=== PATIENT | male | born 1950 | race Caucasian/White ===

== ENCOUNTER 2017-12-06 10:18 | Inpatient (IN) | payer MEDICARE, OTHER ==
[~2017-12-06] VITALS: Ht 175.3 cm; Wt 68.6 kg
[~2017-12-06 10:18] MED LIST: ALBU18HF2 INH; ASPI-1 PO; ATOR20TA66 PO; BENZ-16 PO; BUDE10.2 INH; CLOP75TA35 PO; GABA-532 PO; IPRA4AER IH; LISI-600 PO; METO25TA6 PO; PETR368J TP; VIT1CAPS46 PO; [UNRECOGNIZED DRUG - CODE] PO
[2017-12-06] MEDS ORDERED: methylPREDNISolone sod succ 125mg/2ml vial IV ONE (10:30)
[2017-12-06] MEDS ORDERED: normal saline 1000ML IV soln IVB ONE (10:30)
[2017-12-06] MEDS ORDERED: albuterol 2.5 MG/3 ML nebule CONTNEB PRN (10:30)
[2017-12-06 11:03] LABS: BASOPHILS % (AUTO) 0.2 % (0-1); EOSINOPHILS # (AUTO) 0.1 X10'3 (0-0.9); EOSINOPHILS % (AUTO) 0.8 % (0-6); HEMATOCRIT 41.5 % (42.0-52.0); HEMOGLOBIN 14.1 g/dl (14.0-17.9); LYMPHOCYTES # (AUTO) 0.9 X10'3 (1.1-4.8); LYMPHOCYTES % (AUTO) 13.5 % (21-51); MEAN CORPUSCULAR HEMOGLOBIN 29.9 PG (27.0-31.0); MEAN CORPUSCULAR VOLUME 87.9 FL (78-98); MEAN PLATELET VOLUME 7.4 FL (7.4-10.4); MONOCYTES # (AUTO) 0.3 X10'3 (0-0.9); MONOCYTES % (AUTO) 4.8 % (2-12); NEUTROPHILS # (AUTO) 5.6 X10'3 (1.8-7.7); NEUTROPHILS % (AUTO) 80.7 % (42-75); PLATELET COUNT 363 X10'3 (140-440); RED BLOOD COUNT 4.71 X10'6 (4.70-6.10); RED CELL DISTRIBUTION WIDTH 13.1 % (11.5-14.5)
[2017-12-06] MEDS ORDERED: MAGN400O6 PO (11:13)
[2017-12-06] MEDS ORDERED: TAM75C PO (11:13)
[2017-12-06] MEDS ORDERED: FINA5TAB11 PO (11:13)
[2017-12-06] MEDS ORDERED: ONDA4TAB9 SL (11:13)
[2017-12-06] MEDS ORDERED: BENZ-38 PO (11:13)
[2017-12-06] MEDS ORDERED: ASPI-611 PO (11:13)
[2017-12-06] MEDS ORDERED: GABA-532 PO (11:13)
[2017-12-06] MEDS ORDERED: FLO0.4C PO (11:13)
[2017-12-06 11:14] LABS: PARTIAL THROMBOPLASTIN TIME 28 SECONDS (22-32)
[2017-12-06] MEDS ORDERED: NYST1000 PO (11:14)
[2017-12-06 11:18] LABS: ALANINE AMINOTRANSFERASE 32 U/L (12-78); ALBUMIN 3.9 G/DL (3.4-5.0); ALKALINE PHOSPHATASE 145 IU/L (46-116); ANION GAP 6 (8-16); ASPARTATE AMINO TRANSFERASE 37 U/L (10-37); BILIRUBIN,TOTAL 0.6 MG/DL (0.1-1.0); BLOOD UREA NITROGEN 15 MG/DL (7-18); BUN/CREATININE RATIO 15.3 (5.4-32.0); CALCIUM 9.1 MG/DL (8.5-10.1); CHLORIDE 94 MMOL/L (99-107); CREATININE 0.98 MG/DL (0.60-1.10); GLUCOSE 295 MG/DL (70-104); POTASSIUM 5.4 MMOL/L (3.5-5.1); SODIUM 129 MMOL/L (135-145); TOTAL CARBON DIOXIDE 28.6 MMOL/L (24-32); eGFR 76 ML/MIN
[2017-12-06 11:48] LABS: MAGNESIUM 1.9 MG/DL (1.5-2.4)
[2017-12-06] MEDS ORDERED: nitroGLYCERIN 0.4mg/hour patch TD ONE (11:50)
[2017-12-06] MEDS ORDERED: aspirin 300mg supp.rect RC ONE (11:50)
[2017-12-06] MEDS ORDERED: magnesium 2GM in 50ml NS 50 ML IV ONE (12:45)
[2017-12-06 13:08] LABS: POTASSIUM 5.4 MMOL/L (3.5-5.1)
[2017-12-06 13:11] LABS: ABG BASE EXCESS -2.3 mmol/L (-2.0-3.0); ABG HCO3 21.9 mmol/L (22.0-26.0); ABG OXYGEN SATURATION 95.5 % (95-98); ABG PCO2 (T) 36.9 mmHg (35.0-48.0); ABG PH (T) 7.394 (7.350-7.450); ABG PO2 (T) 81.7 mmHg (83-108); FCOHb 0.5 % (0.5-1.5); FMetHb 0.1 % (0.3-1.12); FO2Hb 94.9 % (94-100); PATIENT TEMPERATURE 37.7; RESPIRATORY RATE 19 b/min; TOTAL HEMOGLOBIN 14.1 G/dl (14.0-18.0)
[2017-12-06] MEDS ORDERED: magnesium hydroxide 30ml (MOM) UD suspension PO PRN (14:30)
[2017-12-06] MEDS ORDERED: ondansetron/PF 4mg/2ml inj IV PRN (14:30)
[2017-12-06] MEDS ORDERED: mag hydrox/Alum hydrox/simeth 30ml oral suspension PO PRN (14:30)
[2017-12-06] MEDS ORDERED: acetaminophen 325mg tablet PO PRN (14:30)
[2017-12-06] MEDS: levoFLOXACIN-Levaquin 500mg/D5 100 ML IV SCH (14:42)
[2017-12-06] MEDS: normal saline 1000ml 1,000 ML IV SCH (14:42)
[2017-12-06] MEDS: ipratropium/albuterol 3ml nebule NEB SCH ×3 (15:00→23:16)
[2017-12-06] MEDS ORDERED: PETROLATUM WHITE TP PRN (15:20)
[2017-12-06] MEDS ORDERED: albuterol 2.5 MG/3 ML nebule NEB ONE (15:20)
[2017-12-06] MEDS ORDERED: benzonatate 100mg capsule PO PRN ×2 (15:20)
[2017-12-06] MEDS ORDERED: albuterol 2.5 MG/3 ML nebule NEB PRN (15:35)
[2017-12-06] MEDS ORDERED: petrolatum, white 71gm jar TP PRN (15:45)
[2017-12-06] MEDS ORDERED: non-formulary drug (Ipratropium/Albuterol Sulfate (Combivent Respimat Inhal Spray) 1 PUFFS IH SCH (17:00)
[2017-12-06] MEDS: nystatin 500,000 unit/5ML UD oral suspension PO SCH ×2 (17:00→21:00)
[2017-12-06 17:20] VITALS: BP 152/94
[2017-12-06 19:00] VITALS: BP 95/78
[2017-12-06] MEDS: methylPREDNISolone sod succ 125mg/2ml vial IV SCH (20:00)
[2017-12-06] MEDS: gabapentin 300mg capsule PO SCH (20:00)
[2017-12-06] MEDS: magnesium hydroxide 30ml (MOM) UD suspension PO SCH (20:00)
[2017-12-06] MEDS: metoprolol tartrate 25mg tablet PO SCH (20:00)
[2017-12-06] MEDS: beta-carotene(A) w/C & E + minerals tab PO SCH (20:00)
[2017-12-06] MEDS: heparin, porcine 5000 units/ml vial SQ SCH (20:00)
[2017-12-06] MEDS ORDERED: bismuth subsalicylate 262mg chew tablet PO PRN (21:00)
[2017-12-06 23:00] VITALS: BP 109/74
[2017-12-07] VITALS (10 sets, daily range): BP systolic 115–146; BP diastolic 79–97
[2017-12-07] MEDS: methylPREDNISolone sod succ 125mg/2ml vial IV SCH ×4 (02:32→19:11)
[2017-12-07] MEDS: ipratropium/albuterol 3ml nebule NEB SCH ×6 (03:56→23:36)
[2017-12-07 05:40] LABS: BASOPHILS % (AUTO) 0 % (0-1); EOSINOPHILS % (AUTO) 0 % (0-6); HEMATOCRIT 37.2 % (42.0-52.0); HEMOGLOBIN 12.5 g/dl (14.0-17.9); LYMPHOCYTES # (AUTO) 0.6 X10'3 (1.1-4.8); LYMPHOCYTES % (AUTO) 12.4 % (21-51); MEAN CORPUSCULAR HEMOGLOBIN 29.7 PG (27.0-31.0); MEAN CORPUSCULAR HGB CONC 33.6 % (33.0-36.5); MEAN CORPUSCULAR VOLUME 88.5 FL (78-98); MEAN PLATELET VOLUME 7.9 FL (7.4-10.4); MONOCYTES # (AUTO) 0.1 X10'3 (0-0.9); MONOCYTES % (AUTO) 1.7 % (2-12); NEUTROPHILS # (AUTO) 3.9 X10'3 (1.8-7.7); NEUTROPHILS % (AUTO) 85.9 % (42-75); PLATELET COUNT 362 X10'3 (140-440); RED CELL DISTRIBUTION WIDTH 12.9 % (11.5-14.5); WHITE BLOOD COUNT 4.6 X10'3 (4.5-11.0)
[2017-12-07 06:02] LABS: ALBUMIN 3.4 G/DL (3.4-5.0); ANION GAP 10 (8-16); BLOOD UREA NITROGEN 20 MG/DL (7-18); BUN/CREATININE RATIO 21.7 (5.4-32.0); CALCIUM 9.2 MG/DL (8.5-10.1); CHLORIDE 96 MMOL/L (99-107); CREATININE 0.92 MG/DL (0.60-1.10); GLUCOSE 320 MG/DL (70-104); POTASSIUM 4.7 MMOL/L (3.5-5.1); SODIUM 132 MMOL/L (135-145); TOTAL CARBON DIOXIDE 25.8 MMOL/L (24-32); eGFR 82 ML/MIN
[2017-12-07] MEDS: oseltamivir phos 75mg capsule PO SCH ×3 (06:43→20:00)
[2017-12-07] MEDS: finasteride 5mg tablet PO SCH (08:00)
[2017-12-07] MEDS: nystatin 500,000 unit/5ML UD oral suspension PO SCH ×4 (08:00→20:10)
[2017-12-07] MEDS: atorvastatin 20mg tablet PO SCH (08:00)
[2017-12-07] MEDS: aspirin 81mg tablet.DR PO SCH (08:00)
[2017-12-07] MEDS: clopidogrel 75mg tablet PO SCH (08:00)
[2017-12-07] MEDS: tamsulosin 0.4mg capsule PO SCH (08:00)
[2017-12-07] MEDS: beta-carotene(A) w/C & E + minerals tab PO SCH ×2 (08:00→20:00)
[2017-12-07] MEDS: fluticasone/vilanterol 200mcg/25mcg inhaler IH SCH (08:00)
[2017-12-07] MEDS: magnesium hydroxide 30ml (MOM) UD suspension PO SCH ×2 (08:00→20:00)
[2017-12-07] MEDS: lisinopril 20mg tablet PO SCH (08:00)
[2017-12-07] MEDS: metoprolol tartrate 25mg tablet PO SCH ×2 (08:00→20:00)
[2017-12-07] MEDS: gabapentin 300mg capsule PO SCH ×2 (08:00→20:00)
[2017-12-07] MEDS: levoFLOXACIN-Levaquin 500mg/D5 100 ML IV SCH (08:12)
[2017-12-07] MEDS: pantoprazole 40 MG vial IV SCH (08:12)
[2017-12-07] MEDS: heparin, porcine 5000 units/ml vial SQ SCH ×2 (08:13→19:11)
[2017-12-07] MEDS ORDERED: dextrose ORAL solution 15 GM/59 ML bottle PO PRN ×2 (14:40)
[2017-12-07] MEDS ORDERED: insulin regular, human vial - multi-dose SQ SCH (14:40)
[2017-12-07] MEDS ORDERED: MESSAGE TO PHARMACY PO ONE (14:40)
[2017-12-07] MEDS ORDERED: dextrose 50%-water 50ml dispensing syringe IV PRN ×2 (14:40)
[2017-12-07] MEDS ORDERED: glucagon, human recombinant 1mg kit SUBCUT PRN (14:40)
[2017-12-07] MEDS ORDERED: LORazepam 2 mg/ml vial IV ONE ×2 (14:50→23:30)
[2017-12-07] MEDS ORDERED: LORazepam 2 mg/ml vial ONE (14:51)
[2017-12-07] MEDS ORDERED: diltiazem 5mg/ml 5ml inj. IV ONE (15:10)
[2017-12-07] MEDS ORDERED: diltiazem-D5W 125mg/125ml 125 ML IV SCH (15:10)
[2017-12-07] MEDS: insulin Lispro (HumaLOG) vial - multi-dose SQ SCH ×2 (17:37→21:37)
[2017-12-07] MEDS: Insulin Detemir pen SQ SCH (21:36)
[2017-12-08] MEDS: methylPREDNISolone sod succ 125mg/2ml vial IV SCH ×4 (02:25→18:52)
[2017-12-08 03:00] VITALS: BP 139/86
[2017-12-08] MEDS: ipratropium/albuterol 3ml nebule NEB SCH ×6 (03:10→23:44)
[2017-12-08 06:28] LABS: BASOPHILS % (AUTO) 0.1 % (0-1); EOSINOPHILS # (AUTO) 0.1 X10'3 (0-0.9); EOSINOPHILS % (AUTO) 0.9 % (0-6); HEMATOCRIT 35.8 % (42.0-52.0); HEMOGLOBIN 12.1 g/dl (14.0-17.9); LYMPHOCYTES # (AUTO) 0.5 X10'3 (1.1-4.8); LYMPHOCYTES % (AUTO) 5.7 % (21-51); MEAN CORPUSCULAR HEMOGLOBIN 29.9 PG (27.0-31.0); MEAN CORPUSCULAR HGB CONC 33.7 % (33.0-36.5); MEAN CORPUSCULAR VOLUME 88.9 FL (78-98); MEAN PLATELET VOLUME 8.1 FL (7.4-10.4); MONOCYTES # (AUTO) 0.2 X10'3 (0-0.9); MONOCYTES % (AUTO) 2.1 % (2-12); NEUTROPHILS # (AUTO) 8.6 X10'3 (1.8-7.7); NEUTROPHILS % (AUTO) 91.2 % (42-75); PLATELET COUNT 344 X10'3 (140-440); RED BLOOD COUNT 4.03 X10'6 (4.70-6.10); RED CELL DISTRIBUTION WIDTH 13.3 % (11.5-14.5); WHITE BLOOD COUNT 9.4 X10'3 (4.5-11.0)
[2017-12-08 06:57] LABS: ALBUMIN 3.2 G/DL (3.4-5.0); ANION GAP 9 (8-16); BLOOD UREA NITROGEN 33 MG/DL (7-18); BUN/CREATININE RATIO 35.9 (5.4-32.0); CALCIUM 8.9 MG/DL (8.5-10.1); CHLORIDE 102 MMOL/L (99-107); CREATININE 0.92 MG/DL (0.60-1.10); GLUCOSE 269 MG/DL (70-104); POTASSIUM 4.1 MMOL/L (3.5-5.1); SODIUM 137 MMOL/L (135-145); TOTAL CARBON DIOXIDE 25.6 MMOL/L (24-32); eGFR 82 ML/MIN
[2017-12-08 07:00] VITALS: BP 123/82
[2017-12-08] MEDS: fluticasone/vilanterol 200mcg/25mcg inhaler IH SCH (07:17)
[2017-12-08] MEDS: gabapentin 300mg capsule PO SCH ×2 (08:00→18:52)
[2017-12-08] MEDS: pantoprazole 40 MG vial IV SCH (08:55)
[2017-12-08] MEDS: aspirin 81mg tablet.DR PO SCH (08:55)
[2017-12-08] MEDS: nystatin 500,000 unit/5ML UD oral suspension PO SCH ×4 (08:55→18:54)
[2017-12-08] MEDS: magnesium hydroxide 30ml (MOM) UD suspension PO SCH ×2 (08:55→18:40)
[2017-12-08] MEDS: atorvastatin 20mg tablet PO SCH (08:55)
[2017-12-08] MEDS: beta-carotene(A) w/C & E + minerals tab PO SCH ×2 (08:56→18:53)
[2017-12-08] MEDS: clopidogrel 75mg tablet PO SCH (08:56)
[2017-12-08] MEDS: oseltamivir phos 75mg capsule PO SCH ×2 (08:58→18:52)
[2017-12-08] MEDS: lisinopril 20mg tablet PO SCH (08:58)
[2017-12-08] MEDS: tamsulosin 0.4mg capsule PO SCH (08:58)
[2017-12-08] MEDS: heparin, porcine 5000 units/ml vial SQ SCH ×2 (08:58→18:54)
[2017-12-08] MEDS: levoFLOXACIN-Levaquin 500mg/D5 100 ML IV SCH (08:59)
[2017-12-08] MEDS: metoprolol tartrate 25mg tablet PO SCH ×2 (09:02→18:40)
[2017-12-08] MEDS: finasteride 5mg tablet PO SCH (09:18)
[2017-12-08] MEDS: insulin Lispro (HumaLOG) vial - multi-dose SQ SCH ×3 (09:29→18:39)
[2017-12-08 11:00] VITALS: BP 128/77
[2017-12-08] MEDS ORDERED: LORazepam 0.5 MG tablet PO PRN (11:10)
[2017-12-08] MEDS: normal saline 1000ml 1,000 ML IV SCH (14:32)
[2017-12-08 15:00] VITALS: BP 122/84
[2017-12-08] MEDS: NUT.TX.GLUC.INTOLER,LAC-FR,REG (BOOST GLUCOSE CONTROL) 237 ML PO SCH (17:44)
[2017-12-08 19:00] VITALS: BP 95/62
[2017-12-08] MEDS: Insulin Detemir pen SQ SCH (21:30)
[2017-12-08 23:00] VITALS: BP 113/67
[2017-12-09] VITALS (11 sets, daily range): BP systolic 99–211; BP diastolic 59–142
[2017-12-09] MEDS: methylPREDNISolone sod succ 125mg/2ml vial IV SCH ×4 (02:14→20:18)
[2017-12-09] MEDS: ipratropium/albuterol 3ml nebule NEB SCH ×6 (04:04→23:15)
[2017-12-09 06:52] LABS: BASOPHILS % (AUTO) 0.3 % (0-1); EOSINOPHILS # (AUTO) 0.1 X10'3 (0-0.9); EOSINOPHILS % (AUTO) 1.4 % (0-6); HEMATOCRIT 34.4 % (42.0-52.0); HEMOGLOBIN 11.6 g/dl (14.0-17.9); LYMPHOCYTES # (AUTO) 0.5 X10'3 (1.1-4.8); LYMPHOCYTES % (AUTO) 7.5 % (21-51); MEAN CORPUSCULAR HEMOGLOBIN 29.9 PG (27.0-31.0); MEAN CORPUSCULAR HGB CONC 33.8 % (33.0-36.5); MEAN CORPUSCULAR VOLUME 88.4 FL (78-98); MONOCYTES # (AUTO) 0.2 X10'3 (0-0.9); MONOCYTES % (AUTO) 3.6 % (2-12); NEUTROPHILS # (AUTO) 5.4 X10'3 (1.8-7.7); NEUTROPHILS % (AUTO) 87.2 % (42-75); PLATELET COUNT 346 X10'3 (140-440); RED BLOOD COUNT 3.89 X10'6 (4.70-6.10); RED CELL DISTRIBUTION WIDTH 13.4 % (11.5-14.5); WHITE BLOOD COUNT 6.2 X10'3 (4.5-11.0)
[2017-12-09 07:05] LABS: ANION GAP 7 (8-16); BLOOD UREA NITROGEN 29 MG/DL (7-18); BUN/CREATININE RATIO 37.7 (5.4-32.0); CALCIUM 8.5 MG/DL (8.5-10.1); CHLORIDE 103 MMOL/L (99-107); CREATININE 0.77 MG/DL (0.60-1.10); GLUCOSE 215 MG/DL (70-104); POTASSIUM 4.2 MMOL/L (3.5-5.1); SODIUM 137 MMOL/L (135-145); TOTAL CARBON DIOXIDE 26.8 MMOL/L (24-32); eGFR > 90 ML/MIN
[2017-12-09] MEDS: fluticasone/vilanterol 200mcg/25mcg inhaler IH SCH (07:42)
[2017-12-09] MEDS: gabapentin 300mg capsule PO SCH ×2 (08:26→20:17)
[2017-12-09] MEDS: insulin Lispro (HumaLOG) vial - multi-dose SQ SCH ×4 (08:26→21:43)
[2017-12-09] MEDS: nystatin 500,000 unit/5ML UD oral suspension PO SCH ×4 (08:26→20:18)
[2017-12-09] MEDS: magnesium hydroxide 30ml (MOM) UD suspension PO SCH ×2 (08:26→20:18)
[2017-12-09] MEDS: pantoprazole 40mg Tablet.DR PO SCH (08:27)
[2017-12-09] MEDS: levoFLOXACIN-Levaquin 500mg/D5 100 ML IV SCH (08:27)
[2017-12-09] MEDS: oseltamivir phos 75mg capsule PO SCH ×2 (08:27→20:17)
[2017-12-09] MEDS: beta-carotene(A) w/C & E + minerals tab PO SCH ×2 (08:27→20:17)
[2017-12-09] MEDS: atorvastatin 20mg tablet PO SCH (08:27)
[2017-12-09] MEDS: clopidogrel 75mg tablet PO SCH (08:27)
[2017-12-09] MEDS: metoprolol tartrate 25mg tablet PO SCH ×2 (08:27→20:00)
[2017-12-09] MEDS: aspirin 81mg tablet.DR PO SCH (08:27)
[2017-12-09] MEDS: lisinopril 20mg tablet PO SCH (08:39)
[2017-12-09] MEDS: heparin, porcine 5000 units/ml vial SQ SCH ×2 (08:47→20:18)
[2017-12-09] MEDS: tamsulosin 0.4mg capsule PO SCH (08:48)
[2017-12-09] MEDS: finasteride 5mg tablet PO SCH (08:52)
[2017-12-09] MEDS: NUT.TX.GLUC.INTOLER,LAC-FR,REG (BOOST GLUCOSE CONTROL) 237 ML PO SCH ×6 (13:00→21:46)
[2017-12-09] MEDS ORDERED: LORazepam 2 mg/ml vial IV ONE (16:15)
[2017-12-09] MEDS ORDERED: metoprolol tartrate 1mg/ml inj IV ONE (16:15)
[2017-12-09 16:30] LABS: ABG BASE EXCESS -2.4 mmol/L (-2.0-3.0); ABG HCO3 23.5 mmol/L (22.0-26.0); ABG OXYGEN SATURATION 98.1 % (95-98); ABG PCO2 (T) 44.5 mmHg (35.0-48.0); ABG PO2 (T) 127.7 mmHg (83-108); ALLEN'S TEST Positive; FCOHb 0.3 % (0.5-1.5); FLOW 6 L/min; FMetHb 0.1 % (0.3-1.12); FO2Hb 97.7 % (94-100); TOTAL HEMOGLOBIN 13.8 G/dl (14.0-18.0)
[2017-12-09 16:44] LABS: BASOPHILS % (AUTO) 0.5 % (0-1); EOSINOPHILS # (AUTO) 0.2 X10'3 (0-0.9); HEMATOCRIT 39.6 % (42.0-52.0); HEMOGLOBIN 13.3 g/dl (14.0-17.9); LYMPHOCYTES # (AUTO) 0.3 X10'3 (1.1-4.8); LYMPHOCYTES % (AUTO) 3.3 % (21-51); MEAN CORPUSCULAR HEMOGLOBIN 30.1 PG (27.0-31.0); MEAN CORPUSCULAR HGB CONC 33.6 % (33.0-36.5); MEAN CORPUSCULAR VOLUME 89.6 FL (78-98); MEAN PLATELET VOLUME 7.7 FL (7.4-10.4); MONOCYTES # (AUTO) 0.2 X10'3 (0-0.9); MONOCYTES % (AUTO) 2.3 % (2-12); NEUTROPHILS % (AUTO) 91.9 % (42-75); PLATELET COUNT 361 X10'3 (140-440); RED BLOOD COUNT 4.41 X10'6 (4.70-6.10); RED CELL DISTRIBUTION WIDTH 13.1 % (11.5-14.5); WHITE BLOOD COUNT 8.8 X10'3 (4.5-11.0)
[2017-12-09 17:45] LABS: ALANINE AMINOTRANSFERASE 31 U/L (12-78); ALBUMIN 3.4 G/DL (3.4-5.0); ALKALINE PHOSPHATASE 98 IU/L (46-116); ANION GAP 9 (8-16); ASPARTATE AMINO TRANSFERASE 14 U/L (10-37); BILIRUBIN,TOTAL 0.6 MG/DL (0.1-1.0); BLOOD UREA NITROGEN 30 MG/DL (7-18); BUN/CREATININE RATIO 27.8 (5.4-32.0); CALCIUM 8.6 MG/DL (8.5-10.1); CHLORIDE 101 MMOL/L (99-107); CREATININE 1.08 MG/DL (0.60-1.10); GLUCOSE 191 MG/DL (70-104); POTASSIUM 4.3 MMOL/L (3.5-5.1); SODIUM 137 MMOL/L (135-145); TOTAL CARBON DIOXIDE 27.1 MMOL/L (24-32); TOTAL PROTEIN 6.8 G/DL (6.4-8.2); TROPONIN I < 0.04 NG/ML (0.0-0.05); eGFR 68 ML/MIN
[2017-12-09] MEDS: Insulin Detemir pen SQ SCH (21:44)
[2017-12-10] MEDS: methylPREDNISolone sod succ 125mg/2ml vial IV SCH ×4 (01:50→20:49)
[2017-12-10 02:00] VITALS: BP 143/74
[2017-12-10] MEDS: ipratropium/albuterol 3ml nebule NEB SCH ×6 (02:47→23:14)
[2017-12-10 06:00] VITALS: BP 173/79
[2017-12-10 06:03] LABS: BASOPHILS % (AUTO) 0 % (0-1); EOSINOPHILS % (AUTO) 0.9 % (0-6); HEMATOCRIT 37.6 % (42.0-52.0); HEMOGLOBIN 12.5 g/dl (14.0-17.9); LYMPHOCYTES # (AUTO) 0.4 X10'3 (1.1-4.8); LYMPHOCYTES % (AUTO) 7.3 % (21-51); MEAN CORPUSCULAR HEMOGLOBIN 29.6 PG (27.0-31.0); MEAN CORPUSCULAR HGB CONC 33.2 % (33.0-36.5); MEAN CORPUSCULAR VOLUME 89.2 FL (78-98); MEAN PLATELET VOLUME 7.8 FL (7.4-10.4); MONOCYTES # (AUTO) 0.2 X10'3 (0-0.9); MONOCYTES % (AUTO) 3.1 % (2-12); NEUTROPHILS # (AUTO) 4.8 X10'3 (1.8-7.7); NEUTROPHILS % (AUTO) 88.7 % (42-75); PLATELET COUNT 351 X10'3 (140-440); RED BLOOD COUNT 4.22 X10'6 (4.70-6.10); RED CELL DISTRIBUTION WIDTH 13.5 % (11.5-14.5); WHITE BLOOD COUNT 5.4 X10'3 (4.5-11.0)
[2017-12-10 06:15] LABS: ALBUMIN 3.1 G/DL (3.4-5.0); ANION GAP 5 (8-16); BLOOD UREA NITROGEN 27 MG/DL (7-18); CALCIUM 8.9 MG/DL (8.5-10.1); CHLORIDE 102 MMOL/L (99-107); CREATININE 0.73 MG/DL (0.60-1.10); GLUCOSE 229 MG/DL (70-104); POTASSIUM 3.9 MMOL/L (3.5-5.1); SODIUM 137 MMOL/L (135-145); TOTAL CARBON DIOXIDE 30.5 MMOL/L (24-32); eGFR > 90 ML/MIN
[2017-12-10] MEDS: magnesium hydroxide 30ml (MOM) UD suspension PO SCH ×2 (08:00→20:00)
[2017-12-10] MEDS: NUT.TX.GLUC.INTOLER,LAC-FR,REG (BOOST GLUCOSE CONTROL) 237 ML PO SCH ×3 (08:00→18:00)
[2017-12-10] MEDS: fluticasone/vilanterol 200mcg/25mcg inhaler IH SCH (08:05)
[2017-12-10] MEDS: insulin Lispro (HumaLOG) vial - multi-dose SQ SCH ×2 (10:16→13:25)
[2017-12-10] MEDS: tamsulosin 0.4mg capsule PO SCH (10:45)
[2017-12-10] MEDS: nystatin 500,000 unit/5ML UD oral suspension PO SCH ×4 (10:45→20:49)
[2017-12-10] MEDS: atorvastatin 20mg tablet PO SCH (10:46)
[2017-12-10] MEDS: clopidogrel 75mg tablet PO SCH (10:46)
[2017-12-10] MEDS: finasteride 5mg tablet PO SCH (10:46)
[2017-12-10] MEDS: aspirin 81mg tablet.DR PO SCH (10:46)
[2017-12-10] MEDS: metoprolol tartrate 25mg tablet PO SCH ×2 (10:46→20:48)
[2017-12-10] MEDS: beta-carotene(A) w/C & E + minerals tab PO SCH ×2 (10:46→20:48)
[2017-12-10] MEDS: lisinopril 20mg tablet PO SCH (10:47)
[2017-12-10] MEDS: oseltamivir phos 75mg capsule PO SCH ×2 (10:47→20:49)
[2017-12-10] MEDS: gabapentin 300mg capsule PO SCH ×2 (10:47→20:48)
[2017-12-10] MEDS: levoFLOXACIN-Levaquin 500mg/D5 100 ML IV SCH (10:54)
[2017-12-10] MEDS: heparin, porcine 5000 units/ml vial SQ SCH ×2 (10:55→20:50)
[2017-12-10] MEDS: pantoprazole 40mg Tablet.DR PO SCH (10:55)
[2017-12-10 11:00] VITALS: BP 156/82
[2017-12-10] MEDS: HYDROcodone/acetaminophen 5mg/325mg tablet PO PRN ×2 (17:19→17:21)
[2017-12-10 19:00] VITALS: BP 124/80
[2017-12-10] MEDS: Insulin Detemir pen SQ SCH (21:18)
[2017-12-10 23:00] VITALS: BP 129/74
[2017-12-11] MEDS: methylPREDNISolone sod succ 125mg/2ml vial IV SCH ×2 (01:40→09:28)
[2017-12-11 03:00] VITALS: BP 130/66
[2017-12-11] MEDS: ipratropium/albuterol 3ml nebule NEB SCH ×3 (04:36→11:00)
[2017-12-11 06:04] LABS: BASOPHILS % (AUTO) 0 % (0-1); EOSINOPHILS # (AUTO) 0.1 X10'3 (0-0.9); EOSINOPHILS % (AUTO) 1.1 % (0-6); HEMATOCRIT 36.2 % (42.0-52.0); HEMOGLOBIN 12.1 g/dl (14.0-17.9); LYMPHOCYTES # (AUTO) 0.3 X10'3 (1.1-4.8); LYMPHOCYTES % (AUTO) 4.8 % (21-51); MEAN CORPUSCULAR HEMOGLOBIN 29.7 PG (27.0-31.0); MEAN CORPUSCULAR HGB CONC 33.4 % (33.0-36.5); MEAN CORPUSCULAR VOLUME 88.9 FL (78-98); MEAN PLATELET VOLUME 8.1 FL (7.4-10.4); MONOCYTES # (AUTO) 0.2 X10'3 (0-0.9); MONOCYTES % (AUTO) 2.8 % (2-12); NEUTROPHILS # (AUTO) 6.5 X10'3 (1.8-7.7); NEUTROPHILS % (AUTO) 91.3 % (42-75); PLATELET COUNT 337 X10'3 (140-440); RED BLOOD COUNT 4.07 X10'6 (4.70-6.10); RED CELL DISTRIBUTION WIDTH 13.2 % (11.5-14.5); WHITE BLOOD COUNT 7.1 X10'3 (4.5-11.0)
[2017-12-11 06:18] LABS: ALBUMIN 2.9 G/DL (3.4-5.0); ANION GAP 5 (8-16); BLOOD UREA NITROGEN 29 MG/DL (7-18); BUN/CREATININE RATIO 35.8 (5.4-32.0); CALCIUM 8.7 MG/DL (8.5-10.1); CHLORIDE 101 MMOL/L (99-107); CREATININE 0.81 MG/DL (0.60-1.10); GLUCOSE 229 MG/DL (70-104); POTASSIUM 4.2 MMOL/L (3.5-5.1); SODIUM 134 MMOL/L (135-145); TOTAL CARBON DIOXIDE 27.7 MMOL/L (24-32); eGFR > 90 ML/MIN
[2017-12-11] MEDS: magnesium hydroxide 30ml (MOM) UD suspension PO SCH (08:00)
[2017-12-11] MEDS: fluticasone/vilanterol 200mcg/25mcg inhaler IH SCH (08:03)
[2017-12-11] MEDS: finasteride 5mg tablet PO SCH (09:30)
[2017-12-11] MEDS: beta-carotene(A) w/C & E + minerals tab PO SCH (09:30)
[2017-12-11] MEDS: atorvastatin 20mg tablet PO SCH (09:30)
[2017-12-11] MEDS: aspirin 81mg tablet.DR PO SCH (09:30)
[2017-12-11] MEDS: oseltamivir phos 75mg capsule PO SCH (09:30)
[2017-12-11] MEDS: metoprolol tartrate 25mg tablet PO SCH (09:31)
[2017-12-11] MEDS: gabapentin 300mg capsule PO SCH (09:31)
[2017-12-11] MEDS: clopidogrel 75mg tablet PO SCH (09:31)
[2017-12-11] MEDS: tamsulosin 0.4mg capsule PO SCH (09:31)
[2017-12-11] MEDS: nystatin 500,000 unit/5ML UD oral suspension PO SCH (09:31)
[2017-12-11] MEDS: lisinopril 20mg tablet PO SCH (09:31)
[2017-12-11] MEDS: pantoprazole 40mg Tablet.DR PO SCH (09:31)
[2017-12-11] MEDS: heparin, porcine 5000 units/ml vial SQ SCH (09:32)
[2017-12-11] MEDS: insulin Lispro (HumaLOG) vial - multi-dose SQ SCH (09:38)
[2017-12-11] MEDS ORDERED: levoFLOXACIN 500mg tablet PO SCH (11:00)
[2017-12-11] MEDS: HYDROcodone/acetaminophen 5mg/325mg tablet PO PRN (11:38)
[2017-12-11] MEDS: NUT.TX.GLUC.INTOLER,LAC-FR,REG (BOOST GLUCOSE CONTROL) 237 ML PO SCH (11:43)
== END 2017-12-11 12:30 | DRG 189 ==
LOC: ER 10:19 → ED HOLD 14:32 → EDBEDREQ 15:06 → PCU 3S 16:28
PROVIDERS: ADMIT Family Medicine; ATTEND Family Medicine
PROC: 5A09357 Assistance with Respiratory Ventilation, Less than 24 Consecutive Hours, Continuous Positive Airway Pressure (ICD-10-PCS; principal; 2017-12-06)
PROC: 5A09357 Assistance with Respiratory Ventilation, Less than 24 Consecutive Hours, Continuous Positive Airway Pressure (ICD-10-PCS; 2017-12-07)
PROC: 5A09357 Assistance with Respiratory Ventilation, Less than 24 Consecutive Hours, Continuous Positive Airway Pressure (ICD-10-PCS; 2017-12-08)
DX: J96.21 Acute and chronic respiratory failure with hypoxia (principal); I24.8 Other forms of acute ischemic heart disease; E87.1 Hypo-osmolality and hyponatremia; J44.1 Chronic obstructive pulmonary disease with (acute) exacerbation; E87.5 Hyperkalemia; E78.5 Hyperlipidemia, unspecified; I10 Essential (primary) hypertension; I25.10 Atherosclerotic heart disease of native coronary artery without angina pectoris; Z60.2 Problems related to living alone; Z66 Do not resuscitate; Z79.899 Other long term (current) drug therapy; Z79.82 Long term (current) use of aspirin; Z79.02 Long term (current) use of antithrombotics/antiplatelets; Z83.3 Family history of diabetes mellitus; Z82.5 Family history of asthma and other chronic lower respiratory diseases; Z83.518 Family history of other specified eye disorder
CPT/HCPCS: 36415; 36600; 71045; 80048; 80053; 82803; 82948; 83036; 83605; 83735; 83880; 84132; 84484; 85018; 85025; 85610; 85730; 87040; 87070; 92616; 93005; 93308; 94640; 94660; 94760; 96361; 96365; 96375; 97116; 97161; 97530; 99291; A4315; A6212; A6213; C9113; J1644; J1815; J1956; J2060; J2930; J3475; J3490; J7030

== ENCOUNTER 2021-04-30 14:11 | Inpatient (IN) | payer OTHER, MEDICARE ==
[~2021-04-30] VITALS: Ht 175.3 cm; Wt 50.0 kg
[~2021-04-30 14:11] MED LIST changes: -ASPI-1 PO; +ASPI-611 PO; +BENZ-38 PO; +CLOP75TA34 PO; -CLOP75TA35 PO; +FINA5TAB11 PO; +FLO0.4C PO; -LISI-600 PO; +LISI20TA28 PO; +LOP25T PO; +MAGN400O6 PO; -METO25TA6 PO; +NYST1000 PO; +ONDA4TAB9 SL; +TAM75C PO
[2021-04-30] MEDS ORDERED: normal saline 1000ml 1,000 ML IV ONE (15:05)
[2021-04-30] MEDS ORDERED: normal saline 1000ML IV soln IVB ONE (15:05)
[2021-04-30] MEDS: diatr meglu/diatrizoate 30ml oral sol.-(3 dose) bottle PO SCH ×3 (15:39→16:35)
[2021-04-30] MEDS ORDERED: ondansetron/PF 4mg/2ml inj IV ONE (15:45)
[2021-04-30] MEDS ORDERED: morphine 4 MG/ML inj SYRINge IV ONE (15:45)
[2021-04-30 15:58] LABS: BASOPHILS # (AUTO) 0.1 X10'3 (0-0.2); BASOPHILS % (AUTO) 0.8 % (0-1); EOSINOPHILS # (AUTO) 0.1 X10'3 (0-0.9); EOSINOPHILS % (AUTO) 1.1 % (0-6); HEMATOCRIT 43.5 % (42.0-52.0); HEMOGLOBIN 14.7 g/dl (14.0-17.9); LYMPHOCYTES # (AUTO) 1.5 X10'3 (1.1-4.8); LYMPHOCYTES % (AUTO) 16.6 % (21-51); MEAN CORPUSCULAR HEMOGLOBIN 31.3 PG (27.0-31.0); MEAN CORPUSCULAR HGB CONC 33.9 g/dL (33.0-36.5); MEAN CORPUSCULAR VOLUME 92.3 FL (78-98); MEAN PLATELET VOLUME 7.7 FL (7.4-10.4); MONOCYTES # (AUTO) 0.5 X10'3 (0-0.9); MONOCYTES % (AUTO) 5.1 % (2-12); NEUTROPHILS % (AUTO) 76.4 % (42-75); PLATELET COUNT 368 X10'3 (140-440); RED BLOOD COUNT 4.71 X10'6 (4.70-6.10); RED CELL DISTRIBUTION WIDTH 13.5 % (11.5-14.5); WHITE BLOOD COUNT 9.2 X10'3 (4.5-11.0)
[2021-04-30 16:23] LABS: ALANINE AMINOTRANSFERASE 32 U/L (12-78); ALBUMIN 3.4 G/DL (3.4-5.0); ALBUMIN/GLOBULIN RATIO 0.8 (1.1-1.5); ALKALINE PHOSPHATASE 128 IU/L (46-116); ANION GAP 11 (8-16); ASPARTATE AMINO TRANSFERASE 19 U/L (10-37); BILIRUBIN,TOTAL 0.5 MG/DL (0.1-1.0); BLOOD UREA NITROGEN 9 MG/DL (7-18); BUN/CREATININE RATIO 9.1 (5.4-32.0); CALCIUM 9.6 MG/DL (8.5-10.1); CHLORIDE 97 MMOL/L (99-107); CREATININE 0.99 MG/DL (0.60-1.10); GLUCOSE 191 MG/DL (70-104); POTASSIUM 4.2 MMOL/L (3.5-5.1); SODIUM 137 MMOL/L (135-145); TOTAL PROTEIN 7.8 G/DL (6.4-8.2); eGFR 75 ML/MIN
[2021-04-30 16:33] LABS: LIPASE 67 U/L (73-393); TROPONIN I < 0.04 NG/ML (0.0-0.05)
[2021-04-30] MEDS ORDERED: iohexol 300mg/ml 100ml inj. ONE (17:02)
[2021-04-30] MEDS ORDERED: potassium Cl 40MEQ/1/2NS 520ml 520 ML IV PRN ×2 (19:05)
[2021-04-30] MEDS ORDERED: acetaminophen 325mg tablet PO PRN (19:05)
[2021-04-30] MEDS ORDERED: mag hydrox/Alum hydrox/simeth 30ml oral suspension PO PRN (19:05)
[2021-04-30] MEDS ORDERED: magnesium hydroxide 30ml (MOM) UD suspension PO PRN (19:05)
[2021-04-30] MEDS: normal saline 1000ml 1,000 ML IV SCH (19:05)
[2021-04-30] MEDS ORDERED: LOPE2CAP PO (19:15)
[2021-04-30] MEDS ORDERED: LIRA0.6P2 SUBCUT (19:15)
[2021-04-30] MEDS ORDERED: MORP100S12 PO (19:15)
[2021-04-30] MEDS ORDERED: LORA-269 PO (19:15)
[2021-04-30] MEDS ORDERED: MESA1.2T PO (19:15)
[2021-04-30] MEDS ORDERED: VIT1CAPS46 PO (19:15)
[2021-04-30] MEDS ORDERED: PRED1TAB PO (19:15)
[2021-04-30] MEDS ORDERED: IRON150C13 PO (19:15)
[2021-04-30] MEDS ORDERED: ACET500C5 PO (19:15)
[2021-04-30] MEDS ORDERED: LOP12.5T PO (19:15)
[2021-04-30] MEDS ORDERED: DEXT15DR28 EACHEYE (19:15)
[2021-04-30] MEDS ORDERED: MAG-154 PO (19:15)
[2021-04-30] MEDS ORDERED: GLIP5TAB13 PO (19:15)
[2021-04-30] MEDS ORDERED: dextrose 50%-water 50ml dispensing syringe IV PRN ×2 (19:25)
[2021-04-30] MEDS ORDERED: dextrose ORAL solution 15 GM/59 ML bottle PO PRN ×2 (19:25)
[2021-04-30] MEDS ORDERED: glucagon, human recombinant 1mg kit SUBCUT PRN (19:25)
[2021-04-30] MEDS ORDERED: MESSAGE TO PHARMACY PO ONE (19:25)
[2021-04-30 19:49] LABS: CLARITY,URINE CLEAR (Clear); COLOR,URINE YELLOW (Yellow); GLUCOSE, URINE NEGATIVE (Neg); KETONES,URINE NEGATIVE (Neg); LEUKOCYTE ESTERASE ,URINE NEGATIVE (Neg); NITRITES, URINE NEGATIVE (Neg); OCCULT BLOOD,URINE NEGATIVE (Neg); PROTEIN,URINE NEGATIVE (Neg); UROBILINOGEN,URINE 0.2 E.U/dL (0.2-1.0)
[2021-04-30 20:00] LABS: UA COLLECTION TYPE NON-SPECIFIED
[2021-04-30] MEDS: K and/or MAG REPLACEMENT MC SCH (20:00)
[2021-04-30] MEDS ORDERED: LORazepam 0.5 MG tablet PO PRN (20:00)
[2021-04-30 20:07] LABS: HEMOGLOBIN A1C 7.8 % (4.5-6.2)
[2021-04-30] MEDS: metoprolol tartrate 12.5mg (1/2 tablet) PO SCH (20:39)
--- NOTE | 2021-04-30 21:43 | NUR ---
DR Alvarez with patient.
--- NOTE | 2021-04-30 21:56 | NUR ---
Patient in room ED 16. I have received report from HARVINDER Alanis and had the opportunity to ask questions and assume patient care.
[2021-04-30 22:50] VITALS: BP 144/85
[2021-04-30] MEDS: ondansetron/PF 4mg/2ml inj IV PRN (22:54)
[2021-05-01] VITALS (22 sets, daily range): BP systolic 118–165; BP diastolic 56–104
[2021-05-01] MEDS: morphine 2 MG/ML inj. syringe IV PRN ×3 (04:05→19:07)
[2021-05-01] MEDS: ondansetron/PF 4mg/2ml inj IV PRN (05:08)
[2021-05-01] MEDS: normal saline 1000ml 1,000 ML IV SCH ×2 (05:09→16:37)
[2021-05-01 06:18] LABS: BASOPHILS # (AUTO) 0.1 X10'3 (0-0.2); BASOPHILS % (AUTO) 0.6 % (0-1); EOSINOPHILS # (AUTO) 0.1 X10'3 (0-0.9); EOSINOPHILS % (AUTO) 1.1 % (0-6); HEMATOCRIT 37.2 % (42.0-52.0); HEMOGLOBIN 12.5 g/dl (14.0-17.9); LYMPHOCYTES # (AUTO) 0.9 X10'3 (1.1-4.8); LYMPHOCYTES % (AUTO) 8.4 % (21-51); MEAN CORPUSCULAR HEMOGLOBIN 30.8 PG (27.0-31.0); MEAN CORPUSCULAR HGB CONC 33.7 g/dL (33.0-36.5); MEAN CORPUSCULAR VOLUME 91.2 FL (78-98); MEAN PLATELET VOLUME 7.7 FL (7.4-10.4); MONOCYTES # (AUTO) 0.6 X10'3 (0-0.9); MONOCYTES % (AUTO) 5.5 % (2-12); NEUTROPHILS # (AUTO) 9.5 X10'3 (1.8-7.7); NEUTROPHILS % (AUTO) 84.4 % (42-75); PLATELET COUNT 308 X10'3 (140-440); RED BLOOD COUNT 4.08 X10'6 (4.70-6.10); WHITE BLOOD COUNT 11.2 X10'3 (4.5-11.0)
--- NOTE | 2021-05-01 06:40 | NUR ---
Patient in room LISSA 355. I have received report from HARVINDER Curry and had the opportunity to ask questions and assume patient care.
[2021-05-01 06:45] LABS: ALANINE AMINOTRANSFERASE 21 U/L (12-78); ALBUMIN 2.5 G/DL (3.4-5.0); ALBUMIN/GLOBULIN RATIO 0.7 (1.1-1.5); ALKALINE PHOSPHATASE 109 IU/L (46-116); ANION GAP 10 (8-16); ASPARTATE AMINO TRANSFERASE 19 U/L (10-37); BILIRUBIN,TOTAL 0.5 MG/DL (0.1-1.0); BLOOD UREA NITROGEN 9 MG/DL (7-18); BUN/CREATININE RATIO 11.5 (5.4-32.0); CALCIUM 8.3 MG/DL (8.5-10.1); CHLORIDE 104 MMOL/L (99-107); CREATININE 0.78 MG/DL (0.60-1.10); GLUCOSE 141 MG/DL (70-104); POTASSIUM 4.1 MMOL/L (3.5-5.1); SODIUM 141 MMOL/L (135-145); TOTAL CARBON DIOXIDE 27.2 MMOL/L (24-32); eGFR > 90 ML/MIN
[2021-05-01] MEDS: K and/or MAG REPLACEMENT MC SCH ×2 (08:00→20:00)
[2021-05-01] MEDS ORDERED: predniSONE 5mg tablet PO SCH (08:00)
[2021-05-01] MEDS: PEG 400/HYPROMELLOSE/GLYCERIN 15ml bottle EACHEYE SCH (08:01)
[2021-05-01] MEDS: metoprolol tartrate 12.5mg (1/2 tablet) PO SCH ×2 (08:04→20:00)
--- NOTE | 2021-05-01 08:43 | NUR ---
PAGER ID: [phone] MESSAGE: [phone]- Shalom Bello- going to OR after 1600. Per Dr. Alvarez notes needs echo and stress test but no orders. Thank you- Ron [phone]
--- NOTE | 2021-05-01 08:43 | NUR ---
ORBITREAD OPERATOR phoned stating pt will begoing to OR after 1600 and needs to be NPO after breakfast. HARVINDER Velasquez notified.
[2021-05-01] MEDS ORDERED: metoprolol tartrate 1mg/ml inj IV PRN (08:55)
[2021-05-01] MEDS ORDERED: nitroGLYCERIN 0.4mg SUBLingual tab SL PRN (08:55)
[2021-05-01] MEDS ORDERED: aminophylline 250mg/10ml inj. IV PRN (08:55)
[2021-05-01] MEDS ORDERED: regadenoson 0.4mg/5ml syringe IV PRN (08:55)
--- NOTE | 2021-05-01 10:46 | NUR ---
medical imaging technologist at bedside
--- NOTE | 2021-05-01 11:18 | NUR ---
patient down to stress test.
--- NOTE | 2021-05-01 11:33 | NUR ---
stool sample for cdiff sent down but rejected due to being too formed.
[2021-05-01 11:41] LABS: OCCULT BLOOD STOOL POSITIVE (Neg)
--- NOTE | 2021-05-01 12:37 | NUR ---
Malnutrition/DM consult: Pt with T2DM, current A1c is 7.8%. Attempted visit with pt at bedside however pt out of room. Per RN pt at stress test and to go to OR later. Written DM education and RD contact information placed at patient's bedside for pt return. Pt reports 2-13 lb wt loss with decreased appetite per malnutrition risk screen with RN. Current wt is underweight however isn't scaled. Most recent scaled wt hx in EMR is 68.64 kg taken November 2017 with a standing scale. Pt currently NPO. No documented significant decrease in muscle strength and edema is localized to scrotum. Pt appears well developed well nourished per ED report. Pt currently lacks a minimum of two criteria for malnutrition. Will continue to follow. Addendum: 05/01/21 at [address] Amended: Links added.
--- NOTE | 2021-05-01 12:49 | NUR ---
Patient back to room from yuri scan. Dr. Maya in to see patient and aware patient has had many loose stools but was too formed and rejected from lab. Will resend sample if needed.
[2021-05-01] MEDS: pantoprazole 40 MG vial IV SCH (13:00)
--- NOTE | 2021-05-01 15:22 | NUR ---
PAGER ID: [phone] MESSAGE: 355- amanda lowery- no abx ordered for OR. do you want any antibiotics? - Ron [phone]
--- NOTE | 2021-05-01 15:33 | NUR ---
Called Dr. Stroud regarding antibiotic for OR. Received order for ancef 2gm on hold for OR.
[2021-05-01] MEDS ORDERED: cefazolin/dext.iso 2gm/100ml 100 ML IV SCH (16:00)
--- NOTE | 2021-05-01 18:31 | NUR ---
Problems reprioritized. Patient report given, questions answered & plan of care reviewed with HARVINDER Ramos.
[2021-05-01] MEDS ORDERED: ondansetron/PF 4mg/2ml inj IV PRN ×3 (19:20→22:55)
[2021-05-01] MEDS ORDERED: ringers solution, lacted 1,000 ML IV SCH ×2 (19:20→19:25)
[2021-05-01] MEDS ORDERED: BUPIVAcaine/PF 2.5 mg/ml (0.25%) 30ml vial ONE (19:20)
[2021-05-01] MEDS ORDERED: meperidine/PF 25mg/ml syringe IV PRN ×5 (19:20→19:25)
[2021-05-01] MEDS ORDERED: morphine 2 MG/ML inj. syringe IV PRN ×2 (19:20→19:25)
[2021-05-01] MEDS ORDERED: morphine 4 MG/ML inj SYRINge IV PRN ×2 (19:20→19:25)
[2021-05-01] MEDS ORDERED: proCHLORperazine 10 MG/2 ml inj IV PRN ×2 (19:20→19:25)
--- NOTE | 2021-05-01 19:28 | NUR ---
Dr burnett came in and saw patient at bedside, initialed site and left, patient vitals token along with blood sugar and wiped with CHG wipes.
[2021-05-01] MEDS ORDERED: LIDOcaine 1% (10mg/ml) 2ml vial ONE (20:13)
[2021-05-01] MEDS ORDERED: desflurane 240ml liquid inh. IH ONE (20:20)
[2021-05-01] MEDS ORDERED: hydrALAZINE 20mg/ml inj. IV ONE (20:20)
[2021-05-01] MEDS ORDERED: labetalol 20mg/4ml (5mg/ml) syringe IV ONE (20:20)
[2021-05-01] MEDS ORDERED: ondansetron/PF 4mg/2ml inj ONE (20:20)
[2021-05-01] MEDS ORDERED: glycopyrrolate 0.2mg/ml inj ONE (20:20)
[2021-05-01] MEDS ORDERED: neostigmine methylsulfate 1 MG/ML 10ml vial ONE (20:20)
[2021-05-01] MEDS ORDERED: dexamethasone sod phosphate 10mg/ml inj ONE (20:20)
[2021-05-01] MEDS ORDERED: sevoflurane 250ml liquid IH ONE (20:20)
[2021-05-01] MEDS ORDERED: fentaNYL/PF 50MCG/1 ML 2ML syringe ONE ×2 (20:21→21:10)
[2021-05-01] MEDS ORDERED: LIDOcaine 2% (20mg/ml) 5ml vial ONE (20:21)
[2021-05-01] MEDS ORDERED: propofol inj 20 ML IV ONE (20:21)
[2021-05-01] MEDS ORDERED: midazolam 1 mg/ML 2ml injection ONE (20:21)
[2021-05-01] MEDS ORDERED: rocuronium 10mg/ml inj IV ONE (21:03)
[2021-05-01] MEDS ORDERED: hydrocortisone sod succ/PF 100mg/2ml inj. ONE (21:03)
[2021-05-01] MEDS ORDERED: metoprolol tartrate 1mg/ml inj IV ONE (21:23)
[2021-05-01] MEDS ORDERED: acetaminophen 1,000mg/100ml IV 100 ML IV ONE (22:21)
--- NOTE | 2021-05-01 22:50 | NUR ---
PT ARRIVED TO RR VIA BED WITH DR ESTEBAN, REPORT GIVEN, PT WAKING UP, BUT NOT MAKING SENSE, 20GPIV TO A/C-NOT IN USE, 18G TO LEFT WRIST-LR RUNNING, ART LINE TO RIGHT WRIST-NOT NEEDED, WILL D/C, PT C/O PAIN "ALL OVER", UNABLE TO ANSWER QUESTIONS, AGITATED IN BED A BIT, REPEATING "NO FUCKING PUSSY" WILL MEDICATE FOR PAIN, F/C IN PLACE-DRAINING URINE, SCDS ON, ISLAND DRSG TO LEFT GROIN-CDI, ICE TO SCROTUM PER DR. COTTON SUGGESTION, VSS.
[2021-05-01] MEDS: meperidine/PF 25mg/ml syringe IV PRN (22:52)
--- NOTE | 2021-05-01 23:52 | NUR ---
POST OP REPORT GIVEN TO CHARGE NURSE MELY-HARVINDER, FROM [facility]. AND GIVEN TO SHRUTI HIS NURSE
[2021-05-02] VITALS (12 sets, daily range): BP systolic 112–154; BP diastolic 57–84
--- NOTE | 2021-05-02 00:10 | NUR ---
RECEIVED CALL FORM LAB REGARDING FLAGGED LAB RESULT FROM PERITONEAL FLUID SWAB-MOD WBC, GRAM NEG RODS,GRAM POS COCCI. RESULTS CALLED TO DR DAVIDSON-NO NEW ORDERS GIVEN.
--- NOTE | 2021-05-02 00:30 | NUR ---
PT CALMER, ABLE TO ANSWER SOME QUESTIONS APPROPRIATELY, STILL CURSING AT TIMES THOUGH NOT ANGRY, VSS, 18G TO LEFT WRIST, ONLY LINE, ALL OTHERS D/CD, F/C IN PLACE DRAINING CLEAR URINE, ABD INCISION TO LEFT LOWER QUAD-STAPLED AND COVERED WITH ISLAND DRSG-CDI, NC-2LTRS, REPORT CALLED TO MELY ALICEA RN ON SURGICAL FLOOR-ALL QUESTIONS ANSWERED, PT RTN TO ROOM 355, ATTACHED TO MONITORS, BED LOW AND LOCKED, PRIMARY RN PRESENT.
--- NOTE | 2021-05-02 00:44 | NUR ---
pT ARRIVED BACK ON UNIT WITH EFRAÍN, PT SEEMS IN CALM APPROPRIATE MOOD, HAS WELDON CATHETER AND NEW IV 18 GAUGE LEFT WRIST WITH LR RUNNING AT 50ML/HR.
[2021-05-02] MEDS: normal saline 1000ml 1,000 ML IV SCH ×3 (00:50→14:38)
[2021-05-02] MEDS: ceFOXitin 1 GM/D5W 50mL IVPB 1 GM in normal saline 100ml IV soln 100 ML IV SCH ×2 (00:50→07:12)
[2021-05-02] MEDS: hydrocortisone sod succ/PF 100mg/2ml inj. IV SCH ×4 (02:33→20:20)
[2021-05-02] MEDS: meperidine/PF 25mg/ml syringe IV PRN (04:19)
[2021-05-02 06:10] LABS: BASOPHILS % (AUTO) 0.1 % (0-1); EOSINOPHILS % (AUTO) 0 % (0-6); HEMATOCRIT 36.5 % (42.0-52.0); HEMOGLOBIN 12.3 g/dl (14.0-17.9); LYMPHOCYTES # (AUTO) 0.4 X10'3 (1.1-4.8); MEAN CORPUSCULAR HGB CONC 33.7 g/dL (33.0-36.5); MEAN CORPUSCULAR VOLUME 92.1 FL (78-98); MEAN PLATELET VOLUME 7.9 FL (7.4-10.4); MONOCYTES # (AUTO) 0.3 X10'3 (0-0.9); MONOCYTES % (AUTO) 2.9 % (2-12); PLATELET COUNT 283 X10'3 (140-440); RED BLOOD COUNT 3.97 X10'6 (4.70-6.10); RED CELL DISTRIBUTION WIDTH 13.3 % (11.5-14.5); WHITE BLOOD COUNT 10.7 X10'3 (4.5-11.0)
[2021-05-02 06:21] LABS: ALANINE AMINOTRANSFERASE 19 U/L (12-78); ALBUMIN 2.4 G/DL (3.4-5.0); ALBUMIN/GLOBULIN RATIO 0.7 (1.1-1.5); ALKALINE PHOSPHATASE 94 IU/L (46-116); ANION GAP 14 (8-16); ASPARTATE AMINO TRANSFERASE 17 U/L (10-37); BILIRUBIN,TOTAL 0.6 MG/DL (0.1-1.0); BLOOD UREA NITROGEN 7 MG/DL (7-18); BUN/CREATININE RATIO 6.4 (5.4-32.0); CALCIUM 8.1 MG/DL (8.5-10.1); CHLORIDE 99 MMOL/L (99-107); GLUCOSE 277 MG/DL (70-104); POTASSIUM 4.4 MMOL/L (3.5-5.1); SODIUM 134 MMOL/L (135-145); TOTAL CARBON DIOXIDE 21.3 MMOL/L (24-32); TOTAL PROTEIN 5.9 G/DL (6.4-8.2); eGFR 66 ML/MIN
--- NOTE | 2021-05-02 06:25 | NUR ---
Problems reprioritized. Patient report given, questions answered & plan of care reviewed with MELANIE.
--- NOTE | 2021-05-02 06:35 | NUR ---
Patient in room LISSA 355. I have received report from HARVINDER Ramos and had the opportunity to ask questions and assume patient care.
[2021-05-02] MEDS: metoprolol tartrate 12.5mg (1/2 tablet) PO SCH ×2 (07:12→20:22)
[2021-05-02] MEDS: pantoprazole 40 MG vial IV SCH (07:12)
[2021-05-02] MEDS: PEG 400/HYPROMELLOSE/GLYCERIN 15ml bottle EACHEYE SCH (07:13)
[2021-05-02] MEDS: K and/or MAG REPLACEMENT MC SCH ×2 (08:00→20:00)
[2021-05-02] MEDS: insulin Lispro (HumaLOG) vial - multi-dose SQ SCH ×2 (10:07→14:33)
[2021-05-02] MEDS: HYDROcodone/acetaminophen 10/325mg tab PO PRN (15:34)
[2021-05-02] MEDS: ipratropium/albuterol 3ml nebule NEB PRN (16:14)
--- NOTE | 2021-05-02 18:21 | NUR ---
Problems reprioritized. Patient report given, questions answered & plan of care reviewed with HARVINDER Sainz and HARVINDER Guido.
--- NOTE | 2021-05-02 18:42 | NUR ---
Patient in room LISSA 355. I have received report from HARVINDER Velasquez and had the opportunity to ask questions and assume patient care.
--- NOTE | 2021-05-02 18:45 | NUR ---
Patient in room LISSA 355. I have received report from Rogers BLANTON and had the opportunity to ask questions and assume patient care.
[2021-05-02] MEDS: albuterol 2.5 MG/3 ML nebule NEB PRN (19:41)
[2021-05-02] MEDS: morphine 10mg/0.5ml (conc. morphine) oral syringe PO PRN (20:23)
[2021-05-02] MEDS ORDERED: insulin glargine (Lantus) pen - multi-dose SQ ONE (21:50)
[2021-05-03] MEDS: normal saline 1000ml 1,000 ML IV SCH ×2 (00:18→09:52)
[2021-05-03 00:36] VITALS: BP 129/71
[2021-05-03] MEDS: hydrocortisone sod succ/PF 100mg/2ml inj. IV SCH ×4 (02:46→19:45)
--- NOTE | 2021-05-03 05:35 | NUR ---
Spoke with interim 's affairs watch case polisher regarding Pt's possible discharge today. reception manager is concerned that patient won't be accepted back to home if discharged after noon due not having in-house pharmacy and it being a weekend. Relayed these potential constraints to Charge Nurse and oncoming RN. Hay BLANTON
--- NOTE | 2021-05-03 06:22 | NUR ---
I agree with the documentation, assessments, and report that HARVINDER Guido has given. Report was given to HARVINDER Mccloud
--- NOTE | 2021-05-03 06:40 | NUR ---
Problems reprioritized. Patient report given, questions answered & plan of care reviewed with Fabiana BLANTON.
[2021-05-03 07:02] LABS: BASOPHILS % (AUTO) 0.1 % (0-1); EOSINOPHILS % (AUTO) 0 % (0-6); HEMATOCRIT 31.9 % (42.0-52.0); LYMPHOCYTES # (AUTO) 0.6 X10'3 (1.1-4.8); LYMPHOCYTES % (AUTO) 5.6 % (21-51); MEAN CORPUSCULAR HEMOGLOBIN 31.4 PG (27.0-31.0); MEAN CORPUSCULAR HGB CONC 34.6 g/dL (33.0-36.5); MEAN PLATELET VOLUME 7.6 FL (7.4-10.4); MONOCYTES # (AUTO) 0.4 X10'3 (0-0.9); MONOCYTES % (AUTO) 3.5 % (2-12); NEUTROPHILS # (AUTO) 10.2 X10'3 (1.8-7.7); NEUTROPHILS % (AUTO) 90.8 % (42-75); PLATELET COUNT 282 X10'3 (140-440); RED CELL DISTRIBUTION WIDTH 13.1 % (11.5-14.5); WHITE BLOOD COUNT 11.3 X10'3 (4.5-11.0)
[2021-05-03 07:49] LABS: ALANINE AMINOTRANSFERASE 19 U/L (12-78); ALBUMIN 2.2 G/DL (3.4-5.0); ALBUMIN/GLOBULIN RATIO 0.6 (1.1-1.5); ALKALINE PHOSPHATASE 78 IU/L (46-116); ANION GAP 12 (8-16); ASPARTATE AMINO TRANSFERASE 14 U/L (10-37); BILIRUBIN,TOTAL 0.4 MG/DL (0.1-1.0); BLOOD UREA NITROGEN 11 MG/DL (7-18); BUN/CREATININE RATIO 14.9 (5.4-32.0); CALCIUM 8.2 MG/DL (8.5-10.1); CHLORIDE 103 MMOL/L (99-107); CREATININE 0.74 MG/DL (0.60-1.10); GLUCOSE 185 MG/DL (70-104); POTASSIUM 4.3 MMOL/L (3.5-5.1); SODIUM 139 MMOL/L (135-145); TOTAL PROTEIN 5.6 G/DL (6.4-8.2); eGFR > 90 ML/MIN
[2021-05-03 08:00] VITALS: BP 149/88
[2021-05-03] MEDS: K and/or MAG REPLACEMENT MC SCH ×2 (08:00→19:25)
[2021-05-03] MEDS: ipratropium/albuterol 3ml nebule NEB PRN ×4 (09:14→20:17)
[2021-05-03] MEDS: metoprolol tartrate 12.5mg (1/2 tablet) PO SCH ×2 (09:36→19:45)
[2021-05-03] MEDS: pantoprazole 40 MG vial IV SCH (09:39)
[2021-05-03 09:42] LABS: ABG HCO3 19.5 mmol/L (22.0-26.0); ABG OXYGEN SATURATION 95.1 % (94-97); ABG PCO2 (T) 38.9 mmHg (35.0-48.0); ABG PO2 (T) 79.3 mmHg (75.0-100.0); ALLEN'S TEST POSITIVE; FCOHb 0.3 % (0.0-3.9); FLOW 3 L/min; FMetHb 0.4 % (0.0-1.5); FO2Hb 94.4 % (94-97); TOTAL HEMOGLOBIN 13.2 G/dl (14.0-18.0)
[2021-05-03] MEDS: PEG 400/HYPROMELLOSE/GLYCERIN 15ml bottle EACHEYE SCH (09:46)
--- NOTE | 2021-05-03 10:00 | NUR ---
Notified at about 0930 that my patient was having respiratory issues and a rapid was called although RT was in room. RT was able to stabalize patient and felt it was mostly a respiratory issue. Charmaine RN was notified by neighbors visitor that patient may be in distress about 0915. Upon AM assessment pt was in no distress and respiratory status appeared appropriate. Will continue to monitor pt. Patient stable at this time. Messages sent by ICE CUTTER to and floor staff to Dr Maya with no response at time of rapid.
[2021-05-03] MEDS ORDERED: LIDOcaine 2% 10ml TOPICAL JELLY (Urojet) TP ONE (10:05)
[2021-05-03 10:34] LABS: D-DIMER 1.48 MG/L FEU (0-0.50)
[2021-05-03 11:00] VITALS: BP 124/73
--- NOTE | 2021-05-03 11:30 | NUR ---
santoyo reinserted per md order, pt still unable to void, 450ml shown on bladder scan, 475 ml out when santoyo inserted. Pt tolerated well.
--- NOTE | 2021-05-03 11:30 | NUR ---
Dr Salazar rounded on pt about 1030 , pt still appears stable, she says she will start on lovenox, there is some concern for positive occult stool from smear sent to lab previously so H&H will need to be monitored. Ddimer drawn which was 1.48. aware and says its not too elevated but again will start him on lovenox.
[2021-05-03] MEDS: HYDROcodone/acetaminophen 10/325mg tab PO PRN (12:53)
[2021-05-03] MEDS: insulin Lispro (HumaLOG) vial - multi-dose SQ SCH (13:55)
--- NOTE | 2021-05-03 15:15 | NUR ---
Pt is full code but has DNR band on and polst that has DNR in chart. Patient states he is DNR and "doesn't want a tube". Dr Mccormack who has taken over for Dr Maya notified and will change code status per patient wishes.
[2021-05-03 18:00] VITALS: BP 145/76
--- NOTE | 2021-05-03 18:18 | NUR ---
Report given back to Brittni BLANTON's. Patient eating dinner, I encouraged him to try to eat more tonight for better nutrition and he is trying. He is in no distress and watching tv.
--- NOTE | 2021-05-03 19:04 | NUR ---
Patient in room LISSA 355. I have received report from Fabiana BLANTON and had the opportunity to ask questions and assume patient care.
[2021-05-03] MEDS: enoxaparin 40mg/0.4ml syringe SUBCUT SCH (19:46)
[2021-05-03] MEDS ORDERED: diltiazem 30mg tablet PO PRN (20:35)
[2021-05-03] MEDS ORDERED: methylPREDNISolone sod succ/PF 40mg inj. IV ONE (20:50)
--- NOTE | 2021-05-03 21:11 | NUR ---
Rapid response called on pt at 2038. Pt was breathing about 32-40 bpm, HR was 150's, and patient using accessory muscles to breathe. Breathing tx of duoneb was given 20 minutes prior to the rapid being called. Before tx, pt was diminished bilaterally, but after tx, pt had faint expiratory wheezes throughout. Pt is now on BiPAP and is now breathing in the lower 20's with heart rate down to 120's. Pt looks comfortable and is no longer using accessory muscles to breathe.
--- NOTE | 2021-05-03 21:20 | NUR ---
Patient is a transfer from [facility] currently in RM# 3018R. I have received report from Hay BLANTON and had the opportunity to ask questions and assume patient care.
[2021-05-03 22:00] VITALS: BP 115/67
--- NOTE | 2021-05-03 22:00 | NUR ---
Stood patient up at bedside at 1999, patient became short of breath and tachycardic and remained that way at rest, RR in the upper 20s, HR in the 150-160's. Paged Respiratory & Notified Dr. Nunez. Received an order for PO Cardizem. Charge Nurse called a rapid response on Pt at 2034 after HR,RR , & SOB was not improving. Orders received by hospitalist: 30 mg IV solumedrol, Bipap, chest Xray, and transfer to [facility] on Bi pap. Report given and answered questions with Sanna BLANTON. Patient transported to 3018A in hospital bed with RT at bedside at 2140. Hay BLANTON
[2021-05-03 22:15] LABS: ABG HCO3 21.1 mmol/L (22.0-26.0); ABG PCO2 (T) 30.8 mmHg (35.0-48.0); ABG PO2 (T) 83.5 mmHg (75.0-100.0); ALLEN'S TEST POSITIVE; FCOHb 0.3 % (0.0-3.9); FMetHb 0.3 % (0.0-1.5); FO2Hb 95.4 % (94-97); PATIENT TEMPERATURE 37.1; RESPIRATORY RATE 12 b/min; TOTAL HEMOGLOBIN 11.8 G/dl (14.0-18.0)
--- NOTE | 2021-05-03 22:16 | NUR ---
Patient Type 2 Diabetic, and no Lantus was ordered. MD notified regarding this and per MD (Dr. Nunez) because patient is not eating, Lantus is not to be ordered.
[2021-05-03] MEDS: albuterol 2.5 MG/3 ML nebule NEB SCH (23:41)
[2021-05-04] VITALS: BP 111/59
[2021-05-04] MEDS ORDERED: albuterol 2.5 MG/3 ML nebule NEB SCH
[2021-05-04 02:00] VITALS: BP 127/64
[2021-05-04 04:00] VITALS: BP 120/59
[2021-05-04] MEDS: albuterol 2.5 MG/3 ML nebule NEB SCH ×6 (04:05→22:55)
--- NOTE | 2021-05-04 06:05 | NUR ---
Problems reprioritized. Patient report given, questions answered & plan of care reviewed with Rajwinder BLANTON.
--- NOTE | 2021-05-04 06:11 | NUR ---
Patient in room PCU 3018. I have received report from HARVINDER Isidro and had the opportunity to ask questions and assume patient care.
[2021-05-04 07:28] LABS: BASOPHILS % (AUTO) 0.1 % (0-1); EOSINOPHILS % (AUTO) 0 % (0-6); HEMATOCRIT 30.9 % (42.0-52.0); HEMOGLOBIN 10.5 g/dl (14.0-17.9); LYMPHOCYTES # (AUTO) 0.6 X10'3 (1.1-4.8); MEAN CORPUSCULAR HEMOGLOBIN 31.2 PG (27.0-31.0); MEAN CORPUSCULAR HGB CONC 34.2 g/dL (33.0-36.5); MEAN CORPUSCULAR VOLUME 91.2 FL (78-98); MEAN PLATELET VOLUME 7.7 FL (7.4-10.4); MONOCYTES # (AUTO) 0.4 X10'3 (0-0.9); MONOCYTES % (AUTO) 3.8 % (2-12); NEUTROPHILS # (AUTO) 10.5 X10'3 (1.8-7.7); NEUTROPHILS % (AUTO) 91.1 % (42-75); PLATELET COUNT 283 X10'3 (140-440); RED BLOOD COUNT 3.39 X10'6 (4.70-6.10); RED CELL DISTRIBUTION WIDTH 13.1 % (11.5-14.5); WHITE BLOOD COUNT 11.5 X10'3 (4.5-11.0)
[2021-05-04] MEDS: predniSONE 5mg tablet PO SCH (07:51)
[2021-05-04] MEDS: pantoprazole 40 MG vial IV SCH (07:51)
[2021-05-04] MEDS: PEG 400/HYPROMELLOSE/GLYCERIN 15ml bottle EACHEYE SCH (07:51)
[2021-05-04] MEDS: metoprolol tartrate 12.5mg (1/2 tablet) PO SCH ×2 (07:52→22:34)
[2021-05-04 07:56] LABS: ALANINE AMINOTRANSFERASE 22 U/L (12-78); ALBUMIN 2.1 G/DL (3.4-5.0); ALBUMIN/GLOBULIN RATIO 0.6 (1.1-1.5); ALKALINE PHOSPHATASE 67 IU/L (46-116); ANION GAP 12 (8-16); ASPARTATE AMINO TRANSFERASE 29 U/L (10-37); BILIRUBIN,TOTAL 0.4 MG/DL (0.1-1.0); BLOOD UREA NITROGEN 12 MG/DL (7-18); BUN/CREATININE RATIO 16.9 (5.4-32.0); CALCIUM 8.2 MG/DL (8.5-10.1); CHLORIDE 103 MMOL/L (99-107); CREATININE 0.71 MG/DL (0.60-1.10); GLUCOSE 112 MG/DL (70-104); POTASSIUM 3.3 MMOL/L (3.5-5.1); SODIUM 143 MMOL/L (135-145); TOTAL CARBON DIOXIDE 28.1 MMOL/L (24-32); TOTAL PROTEIN 5.6 G/DL (6.4-8.2); eGFR > 90 ML/MIN
[2021-05-04] MEDS: K and/or MAG REPLACEMENT MC SCH ×2 (08:00→20:00)
[2021-05-04] MEDS: insulin Lispro (HumaLOG) vial - multi-dose SQ SCH ×3 (09:29→19:28)
[2021-05-04] MEDS ORDERED: potassium Cl 40MEQ/1/2NS 520ml 520 ML IV PRN (10:10)
[2021-05-04] MEDS ORDERED: magnesium 4gm in 100ml NS 100 ML IV PRN (10:10)
[2021-05-04] MEDS ORDERED: potassium Cl 20 mEq SR tablet PO PRN (10:10)
[2021-05-04] MEDS ORDERED: magnesium Cl slow-release 64mg tablet PO PRN (10:10)
[2021-05-04 10:28] LABS: MAGNESIUM 1.9 MG/DL (1.5-2.4)
--- NOTE | 2021-05-04 10:51 | NUR ---
Page to respiratory: 1561A pt is requesting PRN breathing treatment
--- NOTE | 2021-05-04 12:45 | NUR ---
Paged Dr Hahn re: pain relief: PAGER ID: [phone] MESSAGE: Juan Bello [id number] c/o general pain 03/09. wants ibuprofen. Can he have ibuprofen and/or Tylenol? Rajwinder [phone]
[2021-05-04] MEDS ORDERED: acetaminophen 325mg tablet PO PRN ×2 (15:00)
[2021-05-04] MEDS: potassium Cl 20 mEq SR tablet PO PRN ×2 (15:27→22:33)
--- NOTE | 2021-05-04 16:03 | NUR ---
Paged dr biggs to notifiy re: short run of vtach. PAGER ID: [phone] MESSAGE: Juan Bello [id number] pt had 2.14 second run of Vtach. First in visit. No s/sx of distress. RT had just initiated a neb at the time, alena. Rajwinder [phone]
[2021-05-04 18:00] VITALS: BP 135/77
--- NOTE | 2021-05-04 18:46 | NUR ---
Problems reprioritized. Patient report given, questions answered & plan of care reviewed with HARVINDER Nunez.
--- NOTE | 2021-05-04 18:53 | NUR ---
Patient in room PCU 3018. I have received report from Rajwinder BLANTON and had the opportunity to ask questions and assume patient care.
[2021-05-04 22:00] VITALS: BP 144/63
[2021-05-04] MEDS: enoxaparin 40mg/0.4ml syringe SUBCUT SCH (22:34)
[2021-05-04] MEDS: HYDROcodone/acetaminophen 10/325mg tab PO PRN (22:35)
[2021-05-05] MEDS: morphine 10mg/0.5ml (conc. morphine) oral syringe PO PRN ×2 (00:39→20:07)
[2021-05-05 02:00] VITALS: BP 132/61
[2021-05-05] MEDS: albuterol 2.5 MG/3 ML nebule NEB SCH ×6 (03:26→22:49)
--- NOTE | 2021-05-05 05:30 | NUR ---
Noted 5 beat run of VTach. BP: 131/57, pt. denies chest pain. Dr. Nunez notified. Continue electrolyte replacement prn.
--- NOTE | 2021-05-05 06:59 | NUR ---
Patient in room PCU 3018. I have received report from Mayra BLANTON and had the opportunity to ask questions and assume patient care.
[2021-05-05 07:00] VITALS: BP 135/49
--- NOTE | 2021-05-05 07:00 | NUR ---
Patient in room PCU 3018. I have received report from Mayra BLANTON and had the opportunity to ask questions and assume patient care.
--- NOTE | 2021-05-05 07:00 | NUR ---
senior laboratory technician alerted me to increased HR, came in pt room to find pt in respiratory distress, diaphoretic, HR 143 ST, BP 135/60, RR 28. Paged RT and MD. RT placed pt on bipap which relieved some of pt's distress. New orders from MD for CXR, IV Lasix 40 mg once, PRN Metroprolol 5 mg IV, CT Abdomen to r/o PE. After administering Lasix and Metroprolol, pt HR down to 90's and pt looked much better, will continue to monitor
[2021-05-05] MEDS: metoprolol tartrate 12.5mg (1/2 tablet) PO SCH ×2 (07:16→20:10)
[2021-05-05] MEDS: predniSONE 5mg tablet PO SCH (07:16)
--- NOTE | 2021-05-05 07:30 | NUR ---
Page to radiology 7410 4401T Stat chest xray ! Thank you
[2021-05-05] MEDS ORDERED: furosemide 40mg/4ml inj IV ONE (07:35)
[2021-05-05] MEDS ORDERED: furosemide 40mg/4ml inj ONE (07:40)
[2021-05-05] MEDS: metoprolol tartrate 1mg/ml inj IV SCH ×3 (07:43→08:05)
--- NOTE | 2021-05-05 07:52 | NUR ---
PAGER ID: [phone] MESSAGE: [facility] [phone]. PT DRAKE CROCKETT 5092I IN RESP DISTRESS, RT IS HERE, HR 145 SINUS TACH, ABG GOOD LAST NIGHT, ORDERED CXR AND EKG, GAVE PO METROPOLOL, PT DIAPHORETIC, NO IV LASIX ON BOARD,
--- NOTE | 2021-05-05 07:52 | NUR ---
New orders from Dr. Hahn, IV Lasix 40 mg once, IV Metroprolo 5 mg PRN x3, CXR, CT Ab r/o PE, EKG stat , BNP
--- NOTE | 2021-05-05 07:56 | NUR ---
Problems reprioritized. Patient report given, questions answered & plan of care reviewed with Daly BLANTON.
[2021-05-05] MEDS: K and/or MAG REPLACEMENT MC SCH ×2 (08:00→20:00)
[2021-05-05] MEDS: pantoprazole 40 MG vial IV SCH (08:38)
[2021-05-05] MEDS: HYDROcodone/acetaminophen 10/325mg tab PO PRN ×2 (08:38→18:47)
[2021-05-05] MEDS ORDERED: iohexol 350MG/ML 100ml bottle IV ONE (09:48)
[2021-05-05 10:18] LABS: BASOPHILS # (AUTO) 0.1 X10'3 (0-0.2); BASOPHILS % (AUTO) 0.5 % (0-1); EOSINOPHILS % (AUTO) 0.1 % (0-6); HEMATOCRIT 32.4 % (42.0-52.0); HEMOGLOBIN 11.1 g/dl (14.0-17.9); LYMPHOCYTES % (AUTO) 8.8 % (21-51); MEAN CORPUSCULAR HEMOGLOBIN 31.1 PG (27.0-31.0); MEAN CORPUSCULAR HGB CONC 34.3 g/dL (33.0-36.5); MEAN CORPUSCULAR VOLUME 90.7 FL (78-98); MEAN PLATELET VOLUME 7.5 FL (7.4-10.4); MONOCYTES # (AUTO) 0.6 X10'3 (0-0.9); MONOCYTES % (AUTO) 5.8 % (2-12); NEUTROPHILS # (AUTO) 9.4 X10'3 (1.8-7.7); NEUTROPHILS % (AUTO) 84.8 % (42-75); PLATELET COUNT 295 X10'3 (140-440); RED BLOOD COUNT 3.57 X10'6 (4.70-6.10); RED CELL DISTRIBUTION WIDTH 13.2 % (11.5-14.5); WHITE BLOOD COUNT 11.1 X10'3 (4.5-11.0)
[2021-05-05 10:40] LABS: ALANINE AMINOTRANSFERASE 26 U/L (12-78); ALBUMIN 2.3 G/DL (3.4-5.0); ALBUMIN/GLOBULIN RATIO 0.6 (1.1-1.5); ALKALINE PHOSPHATASE 81 IU/L (46-116); ANION GAP 9 (8-16); ASPARTATE AMINO TRANSFERASE 44 U/L (10-37); BILIRUBIN,TOTAL 0.6 MG/DL (0.1-1.0); BLOOD UREA NITROGEN 11 MG/DL (7-18); BUN/CREATININE RATIO 13.9 (5.4-32.0); CALCIUM 8.3 MG/DL (8.5-10.1); CHLORIDE 100 MMOL/L (99-107); CREATININE 0.79 MG/DL (0.60-1.10); GLUCOSE 160 MG/DL (70-104); MAGNESIUM 1.8 MG/DL (1.5-2.4); POTASSIUM 3.4 MMOL/L (3.5-5.1); SODIUM 138 MMOL/L (135-145); TOTAL PROTEIN 6.3 G/DL (6.4-8.2); eGFR > 90 ML/MIN
[2021-05-05 11:00] VITALS: BP 131/66
[2021-05-05] MEDS: PEG 400/HYPROMELLOSE/GLYCERIN 15ml bottle EACHEYE SCH (11:17)
[2021-05-05] MEDS: potassium Cl 20 mEq SR tablet PO PRN ×2 (11:17→16:46)
[2021-05-05 15:00] VITALS: BP 142/73
[2021-05-05 18:00] VITALS: BP 163/88
--- NOTE | 2021-05-05 18:25 | NUR ---
Patient in room PCU 3018. I have received report from HARVINDER Kauffman and had the opportunity to ask questions and assume patient care.
--- NOTE | 2021-05-05 18:28 | NUR ---
Problems reprioritized. Patient report given, questions answered & plan of care reviewed with Magy RN.
--- NOTE | 2021-05-05 18:28 | NUR ---
Problems reprioritized. Patient report given, questions answered & plan of care reviewed with Magy RN.
[2021-05-05] MEDS: insulin Lispro (HumaLOG) vial - multi-dose SQ SCH (18:49)
--- NOTE | 2021-05-05 18:56 | NUR ---
RE: Shalom Bello [id number]: Pt is requesting a breathing treatment. Thanks!
[2021-05-05] MEDS: enoxaparin 40mg/0.4ml syringe SUBCUT SCH (20:09)
[2021-05-05] MEDS: furosemide 40mg/4ml inj IV SCH (20:10)
[2021-05-05 22:00] VITALS: BP 106/54
[2021-05-06 02:00] VITALS: BP 98/51
[2021-05-06] MEDS: albuterol 2.5 MG/3 ML nebule NEB SCH ×3 (03:33→10:46)
--- NOTE | 2021-05-06 04:53 | NUR ---
Kiley from [facility] called to check on pt. Fax number to send discharge papers is .
--- NOTE | 2021-05-06 06:09 | NUR ---
Problems reprioritized. Patient report given, questions answered & plan of care reviewed with HARVINDER Kauffman.
--- NOTE | 2021-05-06 06:38 | NUR ---
Patient in room PCU 3018. I have received report from Magy BLANTON and had the opportunity to ask questions and assume patient care.
[2021-05-06 07:00] VITALS: BP 111/51
--- NOTE | 2021-05-06 07:00 | NUR ---
Patient in room PCU 3018. I have received report from Kristopher BLANTON and had the opportunity to ask questions and assume patient care.
[2021-05-06 07:33] LABS: ALBUMIN 2.2 G/DL (3.4-5.0); ANION GAP 11 (8-16); BLOOD UREA NITROGEN 12 MG/DL (7-18); BUN/CREATININE RATIO 17.6 (5.4-32.0); CALCIUM 8.3 MG/DL (8.5-10.1); CHLORIDE 100 MMOL/L (99-107); CREATININE 0.68 MG/DL (0.60-1.10); GLUCOSE 89 MG/DL (70-104); MAGNESIUM 1.9 MG/DL (1.5-2.4); POTASSIUM 3.4 MMOL/L (3.5-5.1); SODIUM 142 MMOL/L (135-145); TOTAL CARBON DIOXIDE 31.3 MMOL/L (24-32); eGFR > 90 ML/MIN
[2021-05-06] MEDS: pantoprazole 40 MG vial IV SCH (07:40)
[2021-05-06] MEDS: PEG 400/HYPROMELLOSE/GLYCERIN 15ml bottle EACHEYE SCH (07:40)
[2021-05-06] MEDS: metoprolol tartrate 12.5mg (1/2 tablet) PO SCH (07:41)
[2021-05-06] MEDS: predniSONE 5mg tablet PO SCH (07:41)
[2021-05-06] MEDS: furosemide 40mg/4ml inj IV SCH (07:41)
[2021-05-06] MEDS: HYDROcodone/acetaminophen 10/325mg tab PO PRN ×2 (07:54→15:27)
[2021-05-06] MEDS: K and/or MAG REPLACEMENT MC SCH (08:00)
[2021-05-06] MEDS ORDERED: loperamide 2mg capsule PO PRN (09:05)
[2021-05-06] MEDS ORDERED: SIMETH PO PRN (09:05)
[2021-05-06] MEDS ORDERED: ACETAMINOPHEN 650 MG PO PRN (09:05)
[2021-05-06] MEDS ORDERED: [UNRECOGNIZED DRUG - OTHER] PO PRN (09:05)
[2021-05-06] MEDS ORDERED: ALUMINUM HYD PO PRN (09:05)
[2021-05-06] MEDS ORDERED: MAG HYDROX PO PRN (09:05)
--- NOTE | 2021-05-06 10:48 | NUR ---
MD. Diaz PAGER ID: [phone] MESSAGE: Corbin SINGLETON, EXT [phone]. Pt 3026P Shalom Bello. Pt currently has a santoyo for retention. He did not have a santoyo prior to hospitalization. Would you like this removed prior to D/C? Please advise.
[2021-05-06 11:00] VITALS: BP 131/94
[2021-05-06] MEDS ORDERED: POTASSIUM BICARB 20meq eff tab 20 MEQ TABLET.EFF PO PRN ×2 (11:05)
[2021-05-06] MEDS ORDERED: PANT40SU2 PO (12:11)
--- NOTE | 2021-05-06 12:56 | NUR ---
PAGER ID: [phone] MESSAGE: Corbin SINGLETON. Ext [phone]. Pt Shalom [facility] room 0416C transferring to [facility] today, MD Hahn had started him on 40 Lasix BID yesterday for exacerbated HF and SOB. Not on discharging medication orders please advise.
[2021-05-06] MEDS ORDERED: FURO-150 PO (13:12)
[2021-05-06] MEDS ORDERED: POTA20PA40 PO (13:12)
[2021-05-06] MEDS: albuterol 2.5 MG/3 ML nebule NEB PRN (13:38)
[2021-05-06] MEDS: insulin Lispro (HumaLOG) vial - multi-dose SQ SCH (13:39)
--- NOTE | 2021-05-06 15:46 | NUR ---
Pt is stable for discharge per MD orders. All discharge instructions reviewed with patient and all questions answered. [facility] for [facility]. PIV discontinued. Telemetry monitored discontinued. [employer] notified. Belongings collected and sent with patient. Pt transported by [facility] staff. Wheeled to [facility].
--- NOTE | 2021-05-06 15:47 | NUR ---
[place] documentation: I have reviewed and agree with all interventions, assessments performed and documented by Corbin RN. [facility] Medication Administration: For this medication-pass time frame, all medication were reviewed, dispensed, administered and documented per hospital policy by Corbin RN.
--- NOTE | 2021-05-06 15:49 | NUR ---
Problems reprioritized. Patient report given, questions answered & plan of care reviewed with [facility]ON [facility].
[2021-05-06] MEDS ORDERED: magnesium hydroxide 30ml (MOM) UD suspension PO SCH (20:00)
[2021-05-06] MEDS ORDERED: non-formulary drug (Vit C/E/Zn/Coppr/Lutein/Zeaxan (Preservision Areds 2 Softgel) 1 CAP) PO SCH (20:00)
[2021-05-06] MEDS ORDERED: gabapentin 300mg capsule PO SCH (20:00)
[2021-05-07] MEDS ORDERED: LIRAGLUTIDE 0.6 MG/0.1 ML PEN.INJCTR SQ SCH (08:00)
[2021-05-07] MEDS ORDERED: mesalamine 1.2gm ER tablet PO SCH (08:00)
[2021-05-07] MEDS ORDERED: atorvastatin 20mg tablet PO SCH (08:00)
[2021-05-07] MEDS ORDERED: finasteride 5mg tablet PO SCH (08:00)
[2021-05-07] MEDS ORDERED: glipizide 5mg tablet PO SCH (08:00)
[2021-05-07] MEDS ORDERED: iron polysaccharide complex 150mg capsule PO SCH (08:00)
== END 2021-05-06 15:34 | disposition home health service (06) | DRG 350 ==
LOC: ER 14:11 → ED HOLD 19:02 → SUR 3N 22:25 → PCU 3S 05-03 21:37
PROVIDERS: ADMIT Internal Medicine; ATTEND Internal Medicine
PROC: BW211ZZ Computerized Tomography (CT Scan) of Abdomen and Pelvis using Low Osmolar Contrast (ICD-10-PCS; 2021-04-30)
PROC: 4A02XM4 Measurement of Cardiac Total Activity, External Approach (ICD-10-PCS; 2021-05-01)
PROC: 3E033HZ Introduction of Radioactive Substance into Peripheral Vein, Percutaneous Approach (ICD-10-PCS; 2021-05-01)
PROC: 0YU60JZ Supplement Left Inguinal Region with Synthetic Substitute, Open Approach (ICD-10-PCS; principal; 2021-05-01 20:20)
PROC: B3201ZZ Computerized Tomography (CT Scan) of Thoracic Aorta using Low Osmolar Contrast (ICD-10-PCS; 2021-05-05)
DX: K40.30 Unilateral inguinal hernia, with obstruction, without gangrene, not specified as recurrent (principal); I50.33 Acute on chronic diastolic (congestive) heart failure; K92.2 Gastrointestinal hemorrhage, unspecified; I11.0 Hypertensive heart disease with heart failure; J44.9 Chronic obstructive pulmonary disease, unspecified; I25.10 Atherosclerotic heart disease of native coronary artery without angina pectoris; I73.9 Peripheral vascular disease, unspecified; Z66 Do not resuscitate; R00.0 Tachycardia, unspecified; E87.6 Hypokalemia; Z20.822 Contact with and (suspected) exposure to COVID-19; E78.00 Pure hypercholesterolemia, unspecified; D64.9 Anemia, unspecified; Z86.73 Personal history of transient ischemic attack (TIA), and cerebral infarction without residual deficits; Z87.891 Personal history of nicotine dependence; Z83.3 Family history of diabetes mellitus; Z82.49 Family history of ischemic heart disease and other diseases of the circulatory system; Z79.899 Other long term (current) drug therapy; Z82.5 Family history of asthma and other chronic lower respiratory diseases
CPT/HCPCS: 36415; 36600; 71045; 71275; 74177; 76870; 78452; 80048; 80053; 81003; 82272; 82803; 82948; 83036; 83605; 83615; 83690; 83735; 83880; 84484; 85018; 85025; 85379; 85610; 86885; 86900; 86901; 86920; 87070; 87075; 87081; 87635; 93005; 93017; 93306; 93976; 94640; 94660; 94760; 94799; 96361; 96374; 96375; 97116; 97162; 97530; 99285; A4215; A4618; A7000; A9500; C1781; C9113; G0378; J0131; J0360; J0694; J1100; J1650; J1720; J1815; J1940; J2001; J2175; J2250; J2270; J2405; J2704; J2710; J2785; J2920; J3010; J3490; J7030; J7120; J7512; Q9963; Q9967